=== PATIENT | female | born 1950 ===

== ENCOUNTER 2016-10-12 10:21 | Emergency (ER) | payer MEDICARE ==
[2016-10-12 10:21] VITALS: BMI 29.8
[2016-10-12 10:25] VITALS: RESP 18
[2016-10-12 11:09] LABS: ALBUMIN 3.9 g/dL (3.5-5.0); BASO % 0.3 % (0.0-2.0); EOS # 0.1 K/uL (0.0-0.7); EOS % 1.8 % (0.0-4.0); HEMOGLOBIN 12.8 g/dL (11.0-16.0); LYMPH # 1.8 K/uL (1.0-4.3); LYMPH % 31.7 % (20.0-40.0); MEAN CELL VOLUME 87.1 fL (81.0-99.0); MEAN CORPUSCULAR HEMOGLOBIN 29.1 pg (27.0-31.0); MEAN CORPUSCULAR HGB CONC 33.4 g/dL (33.0-37.0); MEAN PLATELET VOLUME 8.5 fL (7.2-11.7); MONO # 0.5 K/uL (0.0-0.8); MONO % 8.1 % (0.0-10.0); NEUT # 3.3 K/uL (1.8-7.0); NEUT % 58.1 % (50.0-75.0); RBC 4.41 Mil/uL (3.80-5.20); RED CELL DISTRIBUTION WIDTH 13.8 % (11.5-14.5); WHITE BLOOD COUNT 5.7 K/uL (4.8-10.8)
[2016-10-12 11:32] LABS: ALB/GLOB RATIO 1.1 (1.0-2.1); ALT/SGPT 28 U/L (9-52); AST/SGOT 24 U/L (14-36); BLOOD UREA NITROGEN 16 mg/dL (7-17); GFR AFRICAN-AMERICAN > 60; GFR NON-AFRICAN AMERICAN > 60
[2016-10-12 11:38] LABS: SQUAMOUS EPITHIAL 1 /hpf (0-5); URINE BILIRUBIN NEGATIVE (NEGATIVE); URINE BLOOD NEGATIVE (NEGATIVE); URINE CLARITY Clear (Clear); URINE COLOR Straw (YELLOW); URINE GLUCOSE (UA) NORMAL (Normal); URINE LEUKOCYTE ESTERASE NEG Leu/uL (Negative); URINE NITRATE NEGATIVE (NEGATIVE); URINE PROTEIN NEGATIVE (NEGATIVE); URINE UROBILINOGEN NORMAL mg/dL (0.2-1.0)
--- NOTE | 2016-10-12 11:52 | C.PDOC ---
History Of Present Illness 66-year-old female, presents to the emergency department with complaints of lower back pain, that has been worsening in the past several days. Patient has a chronic Hx of low back pain x6 months. Denies any falls/trauma or injuries. Patient notes difficulty with bowel movements. States she had a colonoscopy with Dr Ely that showed pre-cancerous polyp. She is pending f/u appointment with Dr Ely on 10/19. Denies fevers, chest pain, shortness of breath, or any other associated symptoms. No other complaints at this time. Time Seen by Provider: 10/12/16 10:41 Chief Complaint (Nursing): Back Pain History Per: Patient History/Exam Limitations: no limitations Onset/Duration Of Symptoms: Days Current Symptoms Are (Timing): Still Present Past Medical History Reviewed: Historical Data, Nursing Documentation, Vital Signs Vital Signs: Last Vital Signs Temp 97.9 F 10/12/16 10:24 Pulse 70 10/12/16 13:30 Resp 18 10/12/16 13:30 BP 117/71 10/12/16 13:30 Pulse Ox 97 10/12/16 13:30 - Medical History PMH: HTN, Hypercholesterolemia Surgical History: Denies: Pacemaker Family History: States: No Known Family Hx - Social History Hx Alcohol Use: No Hx Substance Use: No - Immunization History Hx Tetanus Toxoid Vaccination: No Hx Influenza Vaccination: No Hx Pneumococcal Vaccination: No Review Of Systems Review Of Systems: ROS cannot be obtained secondary to pt's inabilty to answer questions. Constitutional: Negative for: Fever, Chills Cardiovascular: Negative for: Chest Pain Respiratory: Negative for: Shortness of Breath Musculoskeletal: Positive for: Back Pain Neurological: Negative for: Weakness Physical Exam - Physical Exam Appears: Non-toxic, No Acute Distress Skin: Warm, Dry, No Rash Head: Atraumatic, Normacephalic Eye(s): bilateral: Normal Inspection, PERRL Neck: Normal ROM Cardiovascular: Rhythm Regular, No Murmur Respiratory: Normal Breath Sounds, No Accessory Muscle Use Gastrointestinal/Abdominal: Soft, No Tenderness, Other (Obese) Back: Paraspinal Tenderness (Lumbar L3-L5 tenderness. ) Extremity: Normal ROM Neurological/Psych: Oriented x3, Other (Awake and alert) ED Course And Treatment - Laboratory Results Result Diagrams: 10/12/16 10:57 10/12/16 10:57 O2 Sat by Pulse Oximetry: 95 Progress Note: CT Abd/Pel, Bloodwork and UA ordered and reviewed. Patient treated with Toradol and Flexeril Disposition Counseled Patient/Family Regarding: Studies Performed, Diagnosis, Need For Followup, Rx Given - Disposition Referrals: Manuel Ely Jr., MD [Medical Doctor] - Disposition: HOME/ ROUTINE Disposition Time: 15:20 Condition: STABLE Prescriptions: Acetaminophen [Tylenol 325mg tab] 650 mg PO Q6 PRN #30 tab PRN Reason: pain/fever Cyclobenzaprine [Cyclobenzaprine HCl] 10 mg PO BID PRN #15 tab PRN Reason: Muscle Spasm Instructions: Non-Alcoholic Fatty Liver Disease (ED), Back Pain (ED) Print Language: PU[place] R[place] - POA Present On Arrival: None - Clinical Impression Clinical Impression: Low back pain - Scribe Statement The provider has reviewed the documentation as recorded by the Scribe (Alena Quiroz) All medical record entries made by the Scribe were at my direction and personally dictated by me. I have reviewed the chart and agree that the record accurately reflects my personal performance of the history, physical exam, medical decision making, and the department course for this patient. I have also personally directed, reviewed, and agree with the discharge instructions and disposition.
[2016-10-12] MEDS ORDERED: Iodixanol 320 MG/ML 100 ML BOTTLE IV ONE (14:19)
--- NOTE | 2016-10-12 15:07 | CT ---
PROCEDURE: CT Abdomen and Pelvis with contrast HISTORY: abd pain, low back pain, h/o "precancerous polyps" COMPARISON: None available TECHNIQUE: Contrast dose: 100 mL Visipaque Radiation dose: Total exam DLP = 674.15 mGy-cm. This CT exam was performed using one or more of the following dose reduction techniques: Automated exposure control, adjustment of the mA and/or kV according to patient size, and/or use of iterative reconstruction technique. FINDINGS: LOWER THORAX: No visible consolidation, pleural effusion, or pneumothorax. LIVER: Hypoattenuation of the liver compatible with hepatic steatosis. GALLBLADDER AND BILE DUCTS: Unremarkable unenhanced appearance. PANCREAS: Unremarkable unenhanced appearance. SPLEEN: Unremarkable unenhanced appearance. ADRENALS: Unremarkable unenhanced appearance. KIDNEYS AND URETERS: No obstructing calculus or hydronephrosis evident. 3 mm nonobstructing left renal calculus. VASCULATURE: No aortic aneurysm. BOWEL: Stomach is nondistended. Lack of oral contrast limits evaluation for bowel pathology. Bowel loops appear within normal limits of caliber without evidence of obstruction. APPENDIX: The appendix appears within normal limits of caliber. No secondary signs of acute appendicitis. PERITONEUM: No significant free fluid. No definite free air. LYMPH NODES: No bulky adenopathy identified. BLADDER: Unremarkable. REPRODUCTIVE: The uterus is present. BONES: Osseous demineralization. Mild degenerative changes. OTHER FINDINGS: None. IMPRESSION: Hepatic steatosis.
[2016-10-12 15:29] VITALS: BP 127/77; PULSE 76; TEMP 97.7; O2SAT 97
== END 2016-10-12 15:49 | disposition home or self-care (01) ==
LOC: C.ER 10:21
DX: M54.5 Low back pain (principal); I10 Essential (primary) hypertension; E78.00 Pure hypercholesterolemia, unspecified
CPT/HCPCS: 74177; 80053; 81001; 85025; 96374; 99285; G0328; J1885; Q9967